=== PATIENT | female | born 1945 | race Hispanic/Latino ===

== ENCOUNTER 2023-10-28 05:01 | Observation (INO) | payer MEDICARE ==
[2023-10-23 10:54] LABS: BASOPHILS # (AUTO) 0.04 K/uL (0.00-0.20); BASOPHILS % (AUTO) 0.4 % (0.0-5.0); EOSINOPHILS # (AUTO) 0.15 K/uL (0.00-0.70); EOSINOPHILS % (AUTO) 1.6 % (0.0-8.0); HEMATOCRIT 44.7 % (36-48); IMMATURE GRANULOCYTE ABSOLUTE 0.02 K/uL (0-1); LYMPHOCYTES # (AUTO) 3.8 K/uL (1.0-4.8); LYMPHOCYTES % (AUTO) 41.1 % (21.0-51.0); MEAN CORPUSCULAR HEMOGLOBIN 29.9 pg (27.0-33.0); MEAN CORPUSCULAR HGB CONC 32.2 g/dL (32.0-36.0); MEAN CORPUSCULAR VOLUME 92.9 fL (79-99); MONOCYTES # (AUTO) 0.8 K/uL (0.1-1.0); MONOCYTES % (AUTO) 9.1 % (3.0-13.0); NEUTROPHILS # (AUTO) 4.3 K/uL (1.8-7.7); NEUTROPHILS % (AUTO) 47.6 % (40.0-77.0); PLATELET COUNT (AUTO) 397 K/uL (130-400); RED BLOOD CELL COUNT(AUTO) 4.81 MIL/uL (4.00-5.50); RED CELL DISTRIBUTION WIDTH 14.1 % (11.0-15.5); WHITE BLOOD COUNT (AUTO) 9.1 K/uL (4.8-10.8)
[2023-10-23 11:14] LABS: CREATININE 0.8 mg/dL (0.5-1.5); POTASSIUM 4.6 mmol/L (3.5-5.1)
[2023-10-23 11:17] VITALS: BP 174/80; PULSE 64; RESP 20
[~2023-10-28] VITALS: Ht 147.3 cm; Wt 76.7 kg
[2023-10-28] VITALS (42 sets, daily range): BP systolic 110–210; BP diastolic 44–97; PULSE 59–83; RESP 15–20; O2SAT 90–97
[~2023-10-28 05:01] MED LIST: ALBU6.7H14 IH; ALEN70TA80 PO; BUDE10.7 IH; ESCI5TAB16 PO; GABA-529 PO; HYDR-4154 PO; LABE200T7 PO; METH-386 PO; MONT-39 PO; OMEP40CA21 PO
[2023-10-28] MEDS ORDERED: CLINDAMYCIN IVPB 900MG/50ML 50 ML IV ONE (05:19)
[2023-10-28] MEDS ORDERED: LACTATED RINGERS 1000ML 1,000 ML IV ONE (05:20)
[2023-10-28 05:45] LABS: INR 0.94 (0.85-1.15); PROTHROMBIN TIME 10.9 SEC (9.6-11.6)
[2023-10-28 05:49] LABS: ALBUMIN 3.4 g/dL (3.5-5.0); BILIRUBIN,DIRECT 0.1 mg/dL (0.0-0.3); BILIRUBIN,TOTAL 0.4 mg/dL (0.2-1.0); TOTAL PROTEIN, SERUM 7.4 g/dL (6.0-8.3)
[2023-10-28] MEDS ORDERED: MIDAZOLAM HCL 1 MG/ML 2ML VIAL ONE (07:01)
[2023-10-28] MEDS ORDERED: FENTANYL CITRATE PF 50 MCG/1 ML 2ML VIAL ONE ×2 (07:01→07:35)
[2023-10-28] MEDS ORDERED: ROCURONIUM BROMIDE 10MG/1ML 5ML VL ONE (07:01)
[2023-10-28] MEDS ORDERED: PROPOFOL 10 MG/ML 20ML VIAL IV ONE (07:01)
[2023-10-28] MEDS ORDERED: GENTAMICIN SULFATE 80 MG/2 ML VIAL ONE (07:15)
[2023-10-28] MEDS ORDERED: CEFAZOLIN SODIUM 1 GM VIAL ONE (07:32)
[2023-10-28] MEDS ORDERED: PROPOFOL 1000 MG/100 ML 100 ML IV ONE (07:39)
[2023-10-28] MEDS ORDERED: ONDANSETRON 4MG INJ ONE (07:42)
[2023-10-28] MEDS ORDERED: EPHEDRINE SULFATE 50 MG/ML AMPULE ONE (08:18)
[2023-10-28] MEDS: TRANEXAMIC ACID 1000MG/10ML ONE ×2 (08:20→08:40)
[2023-10-28] MEDS ORDERED: 0.9%NACL 48.45 ML, ROPIVACAINE 0.5% 49.25ML, EPINEPH 0.5MG KETOROLAC 30MG,CLONIDINE 80MCG IV PRN ×5 (10:00)
[2023-10-28] MEDS ORDERED: HYDRALAZINE 20MG/ML VIAL ONE (11:56)
[2023-10-28] MEDS ORDERED: ONDANSETRON 4MG INJ IVP PRN (14:00)
[2023-10-28] MEDS ORDERED: HYDROMORPHONE PCA 10 MG/50 ML 50 ML IV PRN (14:00)
[2023-10-28] MEDS ORDERED: MAG/ALUM/SIMETH 30 ML UDCUP PO PRN (14:00)
[2023-10-28] MEDS ORDERED: LACTULOSE 20 GM/30 ML UDCUP PO PRN (14:00)
[2023-10-28] MEDS ORDERED: DIPHENOXYLATE HCL/ATROPINE 2.5/0.025 MG TAB PO ONE (14:00)
[2023-10-28] MEDS ORDERED: ACETAMINOPHEN 325 MG TAB PO PRN (14:00)
[2023-10-28] MEDS ORDERED: DIPHENHYDRAMINE HCL 25 MG CAPSULE PO PRN (14:00)
[2023-10-28] MEDS ORDERED: TRAMADOL HCL 50 MG TABLET PO PRN ×2 (14:00)
[2023-10-28] MEDS: 0.9%NACL 1000ML 1,000 ML IV SCH ×2 (14:49→17:14)
[2023-10-28] MEDS: CLINDAMYCIN IVPB 900MG/50ML 50 ML IV SCH ×2 (17:10→23:47)
[2023-10-28] MEDS ORDERED: ALBUTEROL SULFATE IH PRN (17:30)
[2023-10-28] MEDS ORDERED: Breztri Aerosphere Inhaler IH PRN (18:00)
[2023-10-28] MEDS ORDERED: ALBUTEROL 0.083% 2.5 MG/3 ML INH IH PRN (18:00)
[2023-10-28] MEDS ORDERED: HYDRALAZINE 25MG TABLET PO SCH (18:00)
[2023-10-28] MEDS ORDERED: HYDRALAZINE 20MG/ML VIAL IV PRN (18:30)
[2023-10-28] MEDS ORDERED: HYDRALAZINE 20MG/ML VIAL IV ONE (18:30)
[2023-10-28] MEDS: LABETALOL HCL 200 MG TABLET PO SCH (20:47)
[2023-10-28] MEDS ORDERED: MONTELUKAST SODIUM 10 MG TAB PO SCH (21:00)
[2023-10-28] MEDS ORDERED: GABAPENTIN 100 MG CAPSULE PO SCH (21:00)
[2023-10-29] MEDS ORDERED: CLINDAMYCIN IVPB 900MG/50ML 50 ML IV SCH
[2023-10-29 03:30] VITALS: BP 147/85; PULSE 83; RESP 16
[2023-10-29 05:07] LABS: BASOPHILS # (AUTO) 0.03 K/uL (0.00-0.20); BASOPHILS % (AUTO) 0.2 % (0.0-5.0); EOSINOPHILS % (AUTO) 0.8 % (0.0-8.0); HEMATOCRIT 38.5 % (36-48); IMMATURE GRANULOCYTE ABSOLUTE 0.05 K/uL (0-1); LYMPHOCYTES # (AUTO) 3.2 K/uL (1.0-4.8); LYMPHOCYTES % (AUTO) 26.5 % (21.0-51.0); MEAN CORPUSCULAR HEMOGLOBIN 30.4 pg (27.0-33.0); MEAN CORPUSCULAR HGB CONC 32.2 g/dL (32.0-36.0); MEAN CORPUSCULAR VOLUME 94.4 fL (79-99); MONOCYTES # (AUTO) 1.5 K/uL (0.1-1.0); MONOCYTES % (AUTO) 12.4 % (3.0-13.0); NEUTROPHILS # (AUTO) 7.2 K/uL (1.8-7.7); NEUTROPHILS % (AUTO) 59.7 % (40.0-77.0); PLATELET COUNT (AUTO) 275 K/uL (130-400); RED BLOOD CELL COUNT(AUTO) 4.08 MIL/uL (4.00-5.50); RED CELL DISTRIBUTION WIDTH 14.3 % (11.0-15.5); WHITE BLOOD COUNT (AUTO) 12.1 K/uL (4.8-10.8)
[2023-10-29] MEDS: 0.9%NACL 1000ML 1,000 ML IV SCH (05:08)
[2023-10-29 05:14] LABS: CREATININE 0.9 mg/dL (0.5-1.5); POTASSIUM 4.3 mmol/L (3.5-5.1)
[2023-10-29 07:03] VITALS: PULSE 85; RESP 18; O2SAT 97
[2023-10-29 07:20] VITALS: BP 106/70; PULSE 65; RESP 18
[2023-10-29 08:00] VITALS: O2SAT 98
[2023-10-29] MEDS: HYDRALAZINE 25MG TABLET PO SCH ×2 (08:00→13:30)
[2023-10-29] MEDS ORDERED: NON-FORMULARY MEDICATION 1 EACH (Hydralazine HCl 50 MG) PO SCH (08:00)
[2023-10-29] MEDS ORDERED: RIVAROXABAN 10 MG TABLET PO SCH (09:00)
[2023-10-29] MEDS ORDERED: NON-FORMULARY MEDICATION 1 EACH (Methimazole 5 MG) PO SCH (09:00)
[2023-10-29] MEDS ORDERED: NON-FORMULARY MEDICATION 1 EACH (Omeprazole 40 MG) PO SCH (09:00)
[2023-10-29] MEDS: LABETALOL HCL 200 MG TABLET PO SCH (09:00)
[2023-10-29] MEDS ORDERED: ESCITALOPRAM OXALATE 5 MG PO SCH (09:00)
[2023-10-29] MEDS ORDERED: METHIMAZOLE 10 MG TAB PO SCH (09:00)
[2023-10-29] MEDS ORDERED: CITALOPRAM 20 MG TABLET PO SCH (09:00)
[2023-10-29] MEDS ORDERED: PANTOPRAZOLE 40 MG TAB DR PO SCH (09:00)
[2023-10-29 11:47] VITALS: BP 157/71; PULSE 77; RESP 18
[2023-10-29] MEDS ORDERED: MAGNESIUM 2GM PREMIX 50ML 50 ML IV PRN (12:30)
[2023-10-29] MEDS ORDERED: POTASSIUM CHLORIDE 20MEQ/100ML 100 ML IV PRN (12:30)
[2023-10-29] MEDS ORDERED: POTASSIUM CHLORIDE 10% ELIXIR 20 MEQ/15 ML UDCUP PO PRN (12:30)
[2023-10-29] MEDS ORDERED: KCL 20 MEQ ERTAB PO PRN (12:30)
[2023-10-29 15:15] VITALS: BP 156/68; PULSE 84; RESP 18
[2023-11-02] MEDS ORDERED: ALENDRONATE SODIUM 35 MG TAB PO SCH (06:30)
[2023-11-04] MEDS ORDERED: NON-FORMULARY MEDICATION 1 EACH (Alendronate Sodium 70 MG) PO SCH (09:00)
== END 2023-10-29 18:38 | disposition home health service (06) ==
LOC: DAH 05:01 → DAHIP 05:02 → 4CH 16:40
PROVIDERS: ADMIT Orthopaedic Surgery; ATTEND Orthopaedic Surgery
DX: M17.11 Unilateral primary osteoarthritis, right knee (principal); I10 Essential (primary) hypertension; I25.10 Atherosclerotic heart disease of native coronary artery without angina pectoris; K21.9 Gastro-esophageal reflux disease without esophagitis; M81.0 Age-related osteoporosis without current pathological fracture; I42.9 Cardiomyopathy, unspecified; E03.9 Hypothyroidism, unspecified; E66.9 Obesity, unspecified; I42.8 Other cardiomyopathies; K27.9 Peptic ulcer, site unspecified, unspecified as acute or chronic, without hemorrhage or perforation; Z68.35 Body mass index [BMI] 35.0-35.9, adult; Z90.710 Acquired absence of both cervix and uterus; Z88.0 Allergy status to penicillin; Z86.73 Personal history of transient ischemic attack (TIA), and cerebral infarction without residual deficits; Z79.01 Long term (current) use of anticoagulants; Z87.11 Personal history of peptic ulcer disease; Z90.81 Acquired absence of spleen; Z96.653 Presence of artificial knee joint, bilateral; Z79.899 Other long term (current) drug therapy
CPT/HCPCS: 80048 ×2; 85025 ×2; 36415 ×3; 87641; 27447; 96365; 96366; 96375; 80076; 85610; 85730; 97161; 97012; 97116 ×2; 97530 ×7; 94664; A6260; G0378 ×25; A4510; A4663; J7120 ×2; A4215 ×2; A4649 ×4; J3010 ×2; J0690; J3490 ×6; J1170; J0360 ×2; J1580; J2250; J2704 ×2; J2405 ×3; A6223; A4930; C1763 ×2; C1776; A5120; A4223; A4222; A4221; A6450; J7030